=== PATIENT | male | born 1935 | race Caucasian/White ===

== ENCOUNTER 2016-11-08 09:27 | Outpatient (CLI) | payer MEDICARE | END 2016-11-08 09:28 | disposition home or self-care (01) | DX: I25.2 Old myocardial infarction (principal) ==

== ENCOUNTER 2017-11-28 07:09 | Outpatient (CLI) | payer MEDICARE ==
[2017-11-28 11:48] LABS: BASOPHILS % (AUTO) 0.7 %; EOSINOPHILS # (AUTO) 0.2 10^3/uL (0.0-0.7); EOSINOPHILS % (AUTO) 3.9 %; HGB - HEMOGLOBIN 14.8 g/dL (14.0-18.0); LYMPHOCYTES # (AUTO) 2.1 10^3/uL (1.5-3.5); LYMPHOCYTES % (AUTO) 38.4 %; MEAN CORPUSCULAR HGB CONC 33.5 g/dL (32.0-36.0); MEAN CORPUSCULAR VOLUME 95.3 fL (80.0-94.0); MONOCYTES # (AUTO) 0.7 10^3/uL (0.0-1.0); MONOCYTES % (AUTO) 12.3 %; NEUTROPHILS # (AUTO) 2.5 10^3/uL (1.5-6.6); NEUTROPHILS % (AUTO) 44.7 %; PLT - PLATELET COUNT 119 10^3/uL (130-450); RED BLOOD COUNT 4.62 10^6/uL (4.70-6.10); RED CELL DISTRIBUTION WIDTH 12.8 % (12.0-15.0); WHITE BLOOD COUNT 5.5 x10^3/uL (4.8-10.8)
[2017-11-28 12:22] LABS: ALBUMIN 3.6 g/dL (3.2-5.5); ALBUMIN/GLOBULIN RATIO 1.2 (1.0-2.2); ALKALINE PHOSPHATASE 36 IU/L (42-121); ALT ALANINE AMINOTRANSFERASE 22 IU/L (10-60); AST ASPARTATE AMINOTRANSFERASE 19 IU/L (10-42); BILIRUBIN,TOTAL 0.7 mg/dL (0.2-1.0); BUN - BLOOD UREA NITROGEN 19 mg/dL (6-20); CALCIUM 8.6 mg/dL (8.5-10.3); CARBON DIOXIDE - CO2 28 mmol/L (21-32); CHLORIDE 104 mmol/L (101-111); CHOL/HDL RATIO 1.8 (<5.0); CHOLESTEROL 144 mg/dL; CREATININE 1.1 mg/dL (0.6-1.2); GFR - MDRD 64 (>89); GLUCOSE 97 mg/dL (70-100); HDL CHOLESTEROL 82 mg/dL; SODIUM 137 mmol/L (135-145); TOTAL PROTEIN 6.5 g/dL (6.7-8.2)
[2017-11-28 12:45] LABS: LDL CHOLESTEROL,DIRECT 52 mg/dL; LDLD/HDL RATIO 0.6 (<3.6)
== END 2017-11-28 07:10 | disposition home or self-care (01) ==
LOC: LAB.F 07:09
PROVIDERS: ATTEND Physician Assistant Medical
DX: I10 Essential (primary) hypertension (principal); E78.5 Hyperlipidemia, unspecified
CPT/HCPCS: 36415; 80053; 80061; 83721; 85025

== ENCOUNTER 2018-04-23 10:39 | Outpatient (CLI) | payer MEDICARE ==
--- NOTE | 2018-04-23 13:20 | XRAY Report ---
Reason: R CALCANEAL PAIN X MONTHS Procedure Date: 04/23/2018 Accession Number: [id number] / [id number] Procedure: XR - Calcaneus RT CPT Code: FULL RESULT: EXAM: RIGHT CALCANEUS RADIOGRAPHY EXAM DATE: 04/23/2018 10:55 AM. CLINICAL HISTORY: Right calcaneal pain x months. COMPARISON: None. TECHNIQUE: 2 views. FINDINGS: Bones: Normal. No fractures or bone lesions. Joints: Normal. No subluxations. Soft Tissues: Normal. No soft tissue swelling. IMPRESSION: Normal calcaneus radiography. RADIA
== END 2018-04-23 10:40 | disposition home or self-care (01) ==
LOC: DI 10:39
PROVIDERS: ATTEND Podiatrist
DX: M25.571 Pain in right ankle and joints of right foot (principal)

== ENCOUNTER 2019-02-12 10:55 | Outpatient (CLI) | payer MEDICARE ==
--- NOTE | 2019-02-13 10:29 | XRAY Report ---
Reason: THUMB PAIN LT M79.646 Procedure Date: 02/12/2019 Accession Number: [id number] / [id number] Procedure: XRS - Finger(s) LT CPT Code: FULL RESULT: EXAM: LEFT FIRST DIGIT RADIOGRAPHY EXAM DATE: 02/12/2019 11:17 AM. CLINICAL HISTORY: Thumb pain left M79. 646. Injury x3 weeks. COMPARISON: None. TECHNIQUE: 3 views. FINDINGS: Bones: Normal. No fracture or bone lesion. No significant osteophytic spurring. Joints: Mild narrowing of the first metacarpophalangeal articulation. First carpometacarpal articulation appears preserved. No subluxation identified. Soft Tissues: Normal. No soft tissue swelling. IMPRESSION: No fracture or subluxation detected. RADIA
== END 2019-02-12 10:56 | disposition home or self-care (01) ==
LOC: DI.S 10:55
PROVIDERS: ATTEND Family Medicine
DX: M79.645 Pain in left finger(s) (principal)
CPT/HCPCS: 73140

== ENCOUNTER 2021-11-28 09:24 | Outpatient (CLI) | payer MEDICARE ==
--- NOTE | 2021-11-28 08:29 | CARDIAC PROCEDURE NOTE ---
Stress Test Report Service Date: 11/28/21 Service Time: 09:30 Ordering Provider: Poonam Roy NP Indication for Test: Assess exertional dyspnea in patient with known CAD, s/p CABG with mitral valve repair, as well as known aortic regurgitation. Significant Medical History: Mr Bermeo underwent CABG with mitral valve repair in 2009 or 2010, for progressive exertional dyspnea; he reports that a prominent murmur prompted evaluation and surgical treatment of his mitral valve leakiness along with 2- vessel bypass. Post-operatively he experienced reduction in his dyspnea and improvement in exercise tolerance, nearly to his prior normal level. Records review reveals that he underwent a treadmill stress echocardiogram (TME) on 11/08/2016 at [facility], on which he walked 9 minutes 4 seconds on the Andrés protocol. Resting left ventricular ejection fraction of 55% increased to 75%. Notation was made of stress-associated paradoxical motion of the distal septum of unclear cause (potentially a postoperative finding vs LB BB). He recalls another TME being performed at [place] in ~2018, that he believes was also reassuring. Since that time he has had some gradual decrease in exertional tolerance, though he does not believe the decline has been marked. He reports longstanding random non-exertional chest discomfort, denying evolution of an exertional component, resting dyspnea and peripheral edema. Cardiac Risk Factors: Positive for known CAD, hypertension, hyperlipidemia and family history of ASCVD events in both parents; no known diabetes history. Type of Stress Test: ETT with Echocardiography Procedure: -Exercise Treadmill Test- After signing informed consent, the patient underwent resting echocardiographic imaging and then performed treadmill exercise using a Andrés protocol. The patient exercised for 6 minutes 34 seconds and achieved a peak heart rate of 125 (92 percent predicted maximum heart rate for age), and an estimated workload of 7.7 METS. The test was terminated due to progressive and limiting shortness of breath, with leg fatigue. Resting heart rate: 55 Peak heart rate: 125 Normal response to exercise. Resting BP: 136/76 Peak BP: 174/69 Note that BP initially decreased (jose cruz 130/69) prior to increasing (158/64 at 5:48 of exercise) then increased further during Recovery (174/69 maximum) Abnormal BP response to exercise. Symptoms: Patient denied any chest discomfort or lightheadedness. Rhythm during exercise: Sinus rhythm throughout, with isolated PVCs that increased in frequency during the exercise phase then decreased in frequency during Recovery. EKG at rest showed sinus bradycardia, with first degree AV block, rare PVCs, QRS morphologic abnormality consistent with prior anteroseptal infarct and widespread non-specific ST-T abnormalities. At heart rate of 81 left bundle branch block (LBBB) QRS pattern was seen; with return to baseline narrow QRS complex seen at HR 76 at 6:00 of Recovery. EKG at peak stress could not be interpreted due to LBBB. In Recovery HR decreased normally with abnormal BP course (as described above). Echo imaging performed at rest and with stress will be reported separately. IManny MD, was present throughout this treadmill stress study and supervised it in its entirety. Summary: 1) Exercise tolerance likely significantly above average for age as evidenced by RANEL of -9% (for a 81 year old male, highest age for which data available, noting that patient is 86). 2) Abnormal resting EKG. 3) Adequate level of exercise was achieved on this treadmill stress test. 4) Abnormal BP response to exercise. 5) Due to development of left bundle branch block (LBBB) morphology, peak stress EKG was uninterpretable. 6) Resting echo data notable for prior mitral valve repair ring without mitral stenosis or marked regurgitation, with trace-mild aortic regurgitation, preserved LV size and wall thickness, enlarged left atrium and no significant TR jet. Normal resting left ventricular systolic function, with appropriate hyperdynamic augmentation of all segments with post-exercise imaging, save for the previously noted abnormal septal motion associated with the rate-related LBBB. Note is made that most of post-stress imaging was obtained with heart rate that had dropped below target, possibly incrementally reducing the sensitivity to detect ischemia. See separate report for details. CONCLUSIONS: 1) Overall reassuring test results; patient with intact exercise tolerance, though with limiting dyspnea and limited increase in BP. 2) Rate-related LBBB observed, with onset at heart rate ~80 bpm and return to narrow complex as HR decreased in Recovery period. 3) No clear evidence of inducible ischemia.
== END 2021-11-28 09:25 | disposition home or self-care (01) ==
LOC: DI 09:24
PROVIDERS: ATTEND Nurse Practitioner Family
DX: R06.00 Dyspnea, unspecified (principal); I34.0 Nonrheumatic mitral (valve) insufficiency; I25.10 Atherosclerotic heart disease of native coronary artery without angina pectoris; I11.9 Hypertensive heart disease without heart failure; E78.5 Hyperlipidemia, unspecified; Z82.49 Family history of ischemic heart disease and other diseases of the circulatory system; I44.7 Left bundle-branch block, unspecified
CPT/HCPCS: 93350

== ENCOUNTER 2021-12-07 07:20 | Outpatient (CLI) | payer MEDICARE ==
[2021-12-07 15:05] LABS: BASOPHILS # (AUTO) 0.1 10^3/uL (0.0-0.1); BASOPHILS % (AUTO) 0.7 %; EOSINOPHILS # (AUTO) 0.7 10^3/uL (0.0-0.7); EOSINOPHILS % (AUTO) 10.9 %; HCT - HEMATOCRIT 48.1 % (42.0-52.0); HGB - HEMOGLOBIN 15.7 g/dL (14.0-18.0); LYMPHOCYTES # (AUTO) 2.5 10^3/uL (1.5-3.5); LYMPHOCYTES % (AUTO) 36.5 %; MEAN CORPUSCULAR HGB CONC 32.6 g/dL (32.0-36.0); MEAN CORPUSCULAR VOLUME 94.9 fL (80.0-94.0); MEAN PLATELET VOLUME 12.9 fL (7.4-11.4); MONOCYTES # (AUTO) 0.7 10^3/uL (0.0-1.0); MONOCYTES % (AUTO) 9.7 %; NEUTROPHILS # (AUTO) 2.8 10^3/uL (1.5-6.6); NEUTROPHILS % (AUTO) 41.9 %; PLT - PLATELET COUNT 141 10^3/uL (130-450); RED BLOOD COUNT 5.07 10^6/uL (4.70-6.10); RED CELL DISTRIBUTION WIDTH 12.7 % (12.0-15.0); WHITE BLOOD COUNT 6.7 x10^3/uL (4.8-10.8)
[2021-12-07 15:20] LABS: ALBUMIN 3.9 g/dL (3.2-5.5); ALBUMIN/GLOBULIN RATIO 1.4 (1.0-2.2); ALKALINE PHOSPHATASE 71 IU/L (42-121); ALT ALANINE AMINOTRANSFERASE 61 IU/L (10-60); AST ASPARTATE AMINOTRANSFERASE 32 IU/L (10-42); BILIRUBIN,TOTAL 0.5 mg/dL (0.2-1.0); BUN - BLOOD UREA NITROGEN 24 mg/dL (6-20); CARBON DIOXIDE - CO2 29 mmol/L (21-32); CHLORIDE 103 mmol/L (101-111); CHOL/HDL RATIO 2.5 (<5.0); CHOLESTEROL 176 mg/dL; CREATININE 1.3 mg/dL (0.6-1.2); GFR - MDRD 53 (>89); GLUCOSE 96 mg/dL (70-100); HDL CHOLESTEROL 71 mg/dL; LDL CHOLESTEROL,CALCULATED 95 mg/dL; LDL/HDL RATIO 1.3 (<3.6); POTASSIUM 4.2 mmol/L (3.5-5.0); SODIUM 140 mmol/L (135-145); TOTAL PROTEIN 6.7 g/dL (6.7-8.2); TRIGLYCERIDES 51 mg/dL; VLDL CHOLESTEROL 10 mg/dL
[2021-12-08 06:09] LABS: HCV AB <0.1 s/co ratio (0.0-0.9)
== END 2021-12-07 07:21 | disposition home or self-care (01) ==
LOC: LAB.S 07:20
PROVIDERS: ATTEND Nurse Practitioner Family
DX: E78.5 Hyperlipidemia, unspecified (principal); N40.1 Benign prostatic hyperplasia with lower urinary tract symptoms; Z11.59 Encounter for screening for other viral diseases; I10 Essential (primary) hypertension
CPT/HCPCS: 36415; 80053; 80061; 83721; 84153; 84443; 85025; 86803